=== PATIENT | female | born 1990 | race Caucasian/White ===

== ENCOUNTER 2019-02-19 11:12 | Outpatient (CLI) | payer MEDICAID ==
--- NOTE | 2019-02-19 14:03 | ULT ---
TRANSABDOMINAL PELVIC ULTRASOUND WITH MATOS SCALE AND COLOR FLOW AND SPECTRAL DOPPLER IMAGING: FINDINGS: The uterus measures 9.1 x 5.2 6.7 cm without focal or endometrial fluid. The right ovary measures 1. 5 x 1.1 x 7.8 cm and the left ovary measures 3.7 x 2.3 x 3.6 cm. Flow is demonstrated to both ovarie s. Endometrium measures 13 mm in thickness. No adnexal mass or free fluid in the cul-de-sac is seen . IMPRESSION: No significant abnormalities are identified. POS: [facility]
== END 2019-02-19 11:13 | disposition home or self-care (01) ==
LOC: SCSULT 11:12
PROVIDERS: ATTEND Nurse Practitioner
DX: R10.2 Pelvic and perineal pain (principal)
CPT/HCPCS: 76856; 93976

== ENCOUNTER 2021-12-12 13:39 | Emergency (ER) | payer MEDICAID ==
[2021-12-12] MEDS ORDERED: Lidocaine Viscous Sol 2% 15 ml UD Cup ONE (14:52)
[2021-12-12] MEDS ORDERED: Mag-Al 1200 mg/1200 mg/30 ML UDCUP ONE (14:52)
== END 2021-12-12 15:01 | disposition home or self-care (01) ==
LOC: ERS 13:39
DX: K29.70 Gastritis, unspecified, without bleeding (principal); I10 Essential (primary) hypertension; Z79.899 Other long term (current) drug therapy
CPT/HCPCS: 76705